=== PATIENT | female | born 1945 | race Caucasian/White ===

== ENCOUNTER → 2023-10-16 | Outpatient (REF) ==
[2023-10-16 11:04] LABS: HEMATOCRIT 27.6 % (36.0-47.0); HEMOGLOBIN 8.3 g/dl (12.0-15.5); MEAN CORPUSCULAR HEMOGLOBIN 30.3 pg (27.0-33.0); MEAN CORPUSCULAR HGB CONC 30.1 g/dl (32.0-36.5); MEAN CORPUSCULAR VOLUME 100.7 fl (80.0-96.0); PLATELET COUNT, AUTOMATED 410 10^3/uL (150-450); RED BLOOD COUNT 2.74 10^6/uL (4.00-5.40); WHITE BLOOD COUNT 8.6 10^3/uL (4.0-10.0)
[2023-10-16 11:28] LABS: BLOOD UREA NITROGEN 16 MG/DL (9-23); CALCIUM LEVEL 8.6 MG/DL (8.3-10.6); CARBON DIOXIDE LEVEL 25 MMOL/L (20-31); CHLORIDE LEVEL 106 MMOL/L (98-107); CREATININE FOR GFR 0.65 MG/DL (0.55-1.30); GLOMERULAR FILTRATION RATE > 60.0 (>39); GLUCOSE, FASTING 138 MG/DL (74-106); SODIUM LEVEL 138 MMOL/L (136-145)
== END ==
PROVIDERS: ATTEND Physician Assistant
DX: R62.7 Adult failure to thrive (principal)

== ENCOUNTER → 2023-10-23 | Outpatient (REF) ==
[2023-10-23 11:36] LABS: HEMATOCRIT 29.6 % (36.0-47.0); HEMOGLOBIN 8.8 g/dl (12.0-15.5); MEAN CORPUSCULAR HEMOGLOBIN 30.4 pg (27.0-33.0); MEAN CORPUSCULAR HGB CONC 29.7 g/dl (32.0-36.5); MEAN CORPUSCULAR VOLUME 102.4 fl (80.0-96.0); PLATELET COUNT, AUTOMATED 426 10^3/uL (150-450); RED BLOOD COUNT 2.89 10^6/uL (4.00-5.40); WHITE BLOOD COUNT 9.3 10^3/uL (4.0-10.0)
[2023-10-23 12:00] LABS: BLOOD UREA NITROGEN 16 MG/DL (9-23); CALCIUM LEVEL 8.6 MG/DL (8.3-10.6); CARBON DIOXIDE LEVEL 24 MMOL/L (20-31); CHLORIDE LEVEL 105 MMOL/L (98-107); CREATININE FOR GFR 0.52 MG/DL (0.55-1.30); GLOMERULAR FILTRATION RATE > 60.0 (>39); GLUCOSE, FASTING 140 MG/DL (74-106); POTASSIUM SERUM 3.9 MMOL/L (3.5-5.1); SODIUM LEVEL 138 MMOL/L (136-145)
== END ==
PROVIDERS: ATTEND Physician Assistant
DX: R62.7 Adult failure to thrive (principal)

== ENCOUNTER → 2023-11-13 | Outpatient (REF) ==
[2023-11-13 10:52] LABS: HEMATOCRIT 30.1 % (36.0-47.0); HEMOGLOBIN 9.2 g/dl (12.0-15.5); MEAN CORPUSCULAR HGB CONC 30.6 g/dl (32.0-36.5); PLATELET COUNT, AUTOMATED 517 10^3/uL (150-450); RED BLOOD COUNT 3.07 10^6/uL (4.00-5.40); WHITE BLOOD COUNT 8.8 10^3/uL (4.0-10.0)
[2023-11-13 11:11] LABS: BLOOD UREA NITROGEN 14 MG/DL (9-23); CALCIUM LEVEL 8.9 MG/DL (8.3-10.6); CARBON DIOXIDE LEVEL 24 MMOL/L (20-31); CHLORIDE LEVEL 101 MMOL/L (98-107); CREATININE FOR GFR 0.52 MG/DL (0.55-1.30); GLOMERULAR FILTRATION RATE > 60.0 (>39); GLUCOSE, FASTING 202 MG/DL (74-106); POTASSIUM SERUM 3.8 MMOL/L (3.5-5.1); SODIUM LEVEL 135 MMOL/L (136-145)
== END ==
PROVIDERS: ATTEND Internal Medicine
DX: R62.7 Adult failure to thrive (principal)

== ENCOUNTER → 2023-11-29 | Outpatient (REF) ==
[2023-11-29 12:24] LABS: FOLATE > 24.00 NG/ML (>5.4); MAGNESIUM LEVEL 2.1 MG/DL (1.8-2.4); VITAMIN B12 LEVEL 501 PG/ML (211-911)
== END ==
PROVIDERS: ATTEND Physician Assistant
DX: D64.9 Anemia, unspecified (principal)

== ENCOUNTER 2023-12-11 11:14 | Inpatient (IN) | payer MEDICARE, MEDICAID ==
[~2023-12-11] VITALS: Ht 152.4 cm; Wt 55.5 kg
[2023-12-11 12:20] LABS: BASO # 0.1 10^3/uL (0.0-0.2); BASO % 0.5 % (0.0-1.0); EOS # 0.1 10^3/uL (0.0-0.5); EOS % 0.6 % (0.0-3.0); HEMATOCRIT 26.3 % (36.0-47.0); LYMPH # 1.3 10^3/uL (1.5-5.0); LYMPH % 9.3 % (24.0-44.0); MEAN CORPUSCULAR HEMOGLOBIN 28.8 pg (27.0-33.0); MEAN CORPUSCULAR HGB CONC 30.4 g/dl (32.0-36.5); MEAN CORPUSCULAR VOLUME 94.6 fl (80.0-96.0); MONO # 1.4 10^3/uL (0.0-0.8); MONO % 9.7 % (2.0-8.0); NEUTROPHILS # 11.2 10^3/uL (1.5-8.5); NEUTROPHILS % 79.1 % (36.0-66.0); PLATELET COUNT, AUTOMATED 545 10^3/uL (150-450); RED BLOOD COUNT 2.78 10^6/uL (4.00-5.40); WHITE BLOOD COUNT 14.1 10^3/uL (4.0-10.0)
[2023-12-11 12:39] LABS: ALBUMIN 1.6 G/DL (3.2-5.2); ALKALINE PHOSPHATASE 179 U/L (46-116); ALT/SGPT 40 U/L (7.0-40); AST/SGOT 29 U/L (<34); BILIRUBIN,DIRECT 0.2 MG/DL (<0.4); BILIRUBIN,TOTAL 0.4 MG/DL (0.3-1.2); BLOOD UREA NITROGEN 21 MG/DL (9-23); CALCIUM LEVEL 8.6 MG/DL (8.3-10.6); CARBON DIOXIDE LEVEL 25 MMOL/L (20-31); CHLORIDE LEVEL 106 MMOL/L (98-107); CREATININE FOR GFR 0.45 MG/DL (0.55-1.30); GLOMERULAR FILTRATION RATE > 60.0 (>39); GLUCOSE, FASTING 121 MG/DL (74-106); POTASSIUM SERUM 4.1 MMOL/L (3.5-5.1); SODIUM LEVEL 140 MMOL/L (136-145); TOTAL PROTEIN 6.1 G/DL (5.7-8.2)
[2023-12-11 12:46] LABS: PROCALCITONIN 0.26 ng/ml
[2023-12-11 12:50] LABS: ERYTHROCYTE SEDIMENTATION RATE 77 mm/hr (0-30)
[2023-12-11] MEDS: VANCOMYCIN HCL 1,000 MG, VIAL MATE ADAPTER 1 EACH in NS 250 ML IV ONE (12:59)
[2023-12-11] MEDS ORDERED: BISA10SU27 PR (15:25)
[2023-12-11] MEDS ORDERED: PROT1TAB2 PO (15:25)
[2023-12-11] MEDS ORDERED: ASPI81TA26 PO (15:25)
[2023-12-11] MEDS ORDERED: FOLI1TAB11 PO (15:25)
[2023-12-11] MEDS ORDERED: ACET1TAB55 PO (15:25)
[2023-12-11] MEDS ORDERED: FERR325T3 PO (15:25)
[2023-12-11] MEDS ORDERED: CALC500T31 PO (15:25)
[2023-12-11] MEDS ORDERED: LEXA5TAB13 PO (15:25)
[2023-12-11] MEDS ORDERED: POLY17PO18 PO (15:25)
[2023-12-11] MEDS ORDERED: FLEEENE12 PR (15:25)
[2023-12-11] MEDS ORDERED: NEUR100C PO (15:25)
[2023-12-11] MEDS ORDERED: MM S100C PO (15:25)
[2023-12-11] MEDS ORDERED: MAGN400T2 PO (15:25)
[2023-12-11] MEDS ORDERED: ACET650T15 PO (15:25)
[2023-12-11] MEDS ORDERED: MELA3TAB30 PO (15:25)
[2023-12-11] MEDS ORDERED: LIDO5DIS41 TD (15:25)
[2023-12-11] MEDS ORDERED: ATEN25TA PO (15:25)
[2023-12-11] MEDS ORDERED: HOME MED LIST COMPLETE! XX SCH (15:30)
[2023-12-11] MEDS ORDERED: LIDOCAINE 2% 100MG/5ML SDV (FOR ANES.) As Ordered ONE (15:46)
[2023-12-11] MEDS ORDERED: ONDANSETRON 4MG 2ML VIAL As Ordered ONE (15:46)
[2023-12-11] MEDS ORDERED: ePHEDrine SULFATE 25 MG/5 ML(5MG/ML) SYRINGE As Ordered ONE (15:46)
[2023-12-11] MEDS ORDERED: SUGAMMADEX SODIUM 500 MG/5 ML VIAL (BRIDION) As Ordered ONE (15:46)
[2023-12-11] MEDS ORDERED: ROCURONIUM BROMIDE 50MG/5ML VIAL As Ordered ONE (15:46)
[2023-12-11] MEDS ORDERED: propofoL 200 MG/20 ML VIAL As Ordered ONE (15:46)
[2023-12-11] MEDS ORDERED: PHENYLephrine 500MCG 5ML (100MCG/ML) SYRINGE As Ordered ONE (15:46)
[2023-12-11] MEDS ORDERED: fentaNYL 100 MCG/2 ML INJECTION As Ordered ONE (15:46)
[2023-12-11] MEDS: SODIUM CHLORIDE 0.9% 1000ML IV STA (15:52)
[2023-12-11] MEDS: ceFAZolin 1GM VIAL As Ordered ONE (16:25)
[2023-12-11] MEDS ORDERED: ETOMIDATE INJ 20MG/10ML VIAL As Ordered ONE (16:45)
[2023-12-11] MEDS ORDERED: ceFAZolin 2 GM/D5W 50 ML IV BAG As Ordered ONE (17:10)
[2023-12-11 17:12] LABS: THYROID STIMULATING HORMONE 1.155 uIU/ML (0.55-4.78)
[2023-12-11 17:13] LABS: VITAMIN B12 LEVEL 451 PG/ML (211-911)
[2023-12-11] MEDS ORDERED: ESMOLOL INJ 100MG/10ML VIAL As Ordered ONE (17:29)
[2023-12-11] MEDS: INSULIN LISPRO (NovoLOG) PER UNIT SC SCH ×2 (17:30→21:00)
[2023-12-11] MEDS ORDERED: ACETAMINOPHEN 1000MG 100ML IV BAG As Ordered ONE (17:36)
[2023-12-11] MEDS ORDERED: GLUCAGON INJ 1MG VIAL SC PRN (17:45)
[2023-12-11] MEDS ORDERED: DEXTROSE 50% 50ML SYRINGE IV PRN (17:45)
[2023-12-11] MEDS ORDERED: FLEET ENEMA PR PRN (17:45)
[2023-12-11] MEDS ORDERED: BISACODYL 10MG SUPP PR PRN (17:45)
[2023-12-11] MEDS ORDERED: MIRALAX *UNIT DOSE* 17GM PACKET PO PRN (17:45)
[2023-12-11] MEDS ORDERED: ACETAMINOPHEN TAB 650MG DOSE (2X325MG) PO PRN (17:45)
[2023-12-11] MEDS ORDERED: GLUCOSE 4GM CHEW TABLET PO PRN (17:45)
[2023-12-11] MEDS ORDERED: VANCOMYCIN HCL 1,000 MG, VIAL MATE ADAPTER 1 EACH in D5W 250 ML IV SCH (18:00)
[2023-12-11] MEDS ORDERED: PIPERACILLIN/TAZOBACTAM SOD 4.5 GM in D5W MINI-BAG PLUS 50 ML IV SCH (19:00)
[2023-12-11 19:12] VITALS: BP 110/67; TEMP 97.6; O2SAT 99
[2023-12-11] MEDS: LIDOCAINE 5% (LIDODERM) PATCH TD SCH (19:16)
[2023-12-11 19:45] VITALS: BP 111/53; TEMP 97.4; O2SAT 97
[2023-12-11] MEDS: VANCOMYCIN HCL 750 MG, VIAL MATE ADAPTER 1 EACH in D5W 250 ML IV SCH (20:34)
[2023-12-11 20:39] VITALS: BP 107/56; TEMP 97.1; O2SAT 99
[2023-12-11] MEDS: GABAPENTIN 100 MG CAP PO SCH (21:00)
[2023-12-11] MEDS: ACETAMINOPHEN 650MG ER TAB (TYLENOL ARTHRITIS) PO SCH (21:00)
[2023-12-11] MEDS: OYSTER SHELL CALCIUM 500 MG TAB PO SCH (21:00)
[2023-12-11] MEDS: MAGNESIUM OXIDE 400MG TAB (MAG-OX) PO SCH (21:00)
[2023-12-11] MEDS: DOCUSATE SODIUM 100MG CAPSULE PO SCH (21:00)
[2023-12-11 21:50] VITALS: BP 102/59; TEMP 97; O2SAT 98
[2023-12-11] MEDS: HEPARIN SOD (PORCINE) 5000UNITS/ML 1ML VIAL/SYRINGE SC SCH (21:54)
[2023-12-11] MEDS: VANCOMYCIN HCL 500 MG in D5W MINI-BAG PLUS 100 ML IV SCH (21:55)
[2023-12-11 22:41] VITALS: BP 114/60; TEMP 97.4; O2SAT 96
[2023-12-11] MEDS: PIPERACILLIN/TAZOBACTAM SOD 4.5 GM in D5W MINI-BAG PLUS 50 ML IV SCH (23:10)
[2023-12-11 23:34] VITALS: BP 112/58; TEMP 97.2; O2SAT 100
[2023-12-12 03:53] VITALS: BP 127/60; TEMP 96.9; O2SAT 99
[2023-12-12 07:08] LABS: HEMATOCRIT 26.7 % (36.0-47.0); MEAN CORPUSCULAR HEMOGLOBIN 29.4 pg (27.0-33.0); MEAN CORPUSCULAR VOLUME 98.2 fl (80.0-96.0); PLATELET COUNT, AUTOMATED 491 10^3/uL (150-450); RED BLOOD COUNT 2.72 10^6/uL (4.00-5.40); WHITE BLOOD COUNT 12.9 10^3/uL (4.0-10.0)
[2023-12-12 07:34] VITALS: BP 110/55; TEMP 97.3; O2SAT 99
[2023-12-12 07:37] LABS: VANCOMYCIN LEVEL TROUGH 16.8 UG/ML (10.0-20.0)
[2023-12-12 07:38] LABS: BLOOD UREA NITROGEN 22 MG/DL (9-23); CALCIUM LEVEL 8.4 MG/DL (8.3-10.6); CARBON DIOXIDE LEVEL 25 MMOL/L (20-31); CHLORIDE LEVEL 106 MMOL/L (98-107); CREATININE FOR GFR 0.43 MG/DL (0.55-1.30); GLOMERULAR FILTRATION RATE > 60.0 (>39); GLUCOSE, FASTING 175 MG/DL (74-106); MAGNESIUM LEVEL 2.1 MG/DL (1.8-2.4); POTASSIUM SERUM 4.7 MMOL/L (3.5-5.1); SODIUM LEVEL 136 MMOL/L (136-145)
[2023-12-12 07:50] LABS: PROCALCITONIN 0.23 ng/ml
[2023-12-12 08:57] VITALS: O2SAT 97
[2023-12-12] MEDS ORDERED: FERROUS SULFATE 325MG TAB PO SCH (09:00)
[2023-12-12] MEDS: VANCOMYCIN HCL 750 MG, VIAL MATE ADAPTER 1 EACH in D5W 250 ML IV SCH (09:04)
[2023-12-12] MEDS: ESCITALOPRAM OXALATE 5MG TABLET (LEXAPRO) PO SCH (09:10)
[2023-12-12] MEDS: atenoloL 25 MG TAB PO SCH (09:11)
[2023-12-12] MEDS: FOLIC ACID 1MG TAB PO SCH (09:16)
[2023-12-12] MEDS: PANTOPRAZOLE 40MG TAB (PROTONIX) PO SCH (09:20)
[2023-12-12] MEDS: MORPHINE 2 MG/ML 1ML VIAL IV SCH (11:19)
[2023-12-12 16:00] VITALS: BP 126/60; TEMP 96.8; O2SAT 96
[2023-12-12 20:00] VITALS: BP 115/58; TEMP 98.6; O2SAT 95
[2023-12-12] MEDS: ENOXAPARIN 100MG/1ML SYRINGE (J1650 PER 10MG) SC SCH (21:26)
[2023-12-13 04:00] VITALS: BP 119/57; TEMP 97.5; O2SAT 97
[2023-12-13 07:38] VITALS: BP 108/53; TEMP 97.2; O2SAT 95
[2023-12-13 08:48] LABS: VANCOMYCIN LEVEL TROUGH 21.3 UG/ML (10.0-20.0)
[2023-12-13 08:49] LABS: BLOOD UREA NITROGEN 28 MG/DL (9-23); CALCIUM LEVEL 8.5 MG/DL (8.3-10.6); CARBON DIOXIDE LEVEL 21 MMOL/L (20-31); CHLORIDE LEVEL 105 MMOL/L (98-107); GLOMERULAR FILTRATION RATE > 60.0 (>39); GLUCOSE, FASTING 98 MG/DL (74-106); POTASSIUM SERUM 4.4 MMOL/L (3.5-5.1); SODIUM LEVEL 137 MMOL/L (136-145)
[2023-12-13 09:16] LABS: HEMATOCRIT 26.1 % (36.0-47.0); HEMOGLOBIN 7.7 g/dl (12.0-15.5); MEAN CORPUSCULAR HEMOGLOBIN 28.2 pg (27.0-33.0); MEAN CORPUSCULAR HGB CONC 29.5 g/dl (32.0-36.5); MEAN CORPUSCULAR VOLUME 95.6 fl (80.0-96.0); PLATELET COUNT, AUTOMATED 517 10^3/uL (150-450); RED BLOOD COUNT 2.73 10^6/uL (4.00-5.40); WHITE BLOOD COUNT 14.6 10^3/uL (4.0-10.0)
[2023-12-13 11:51] VITALS: BP 132/62; TEMP 97.1; O2SAT 96
[2023-12-13] MEDS: VANCOMYCIN HCL 1,000 MG, VIAL MATE ADAPTER 1 EACH in D5W 250 ML IV SCH (11:57)
[2023-12-13] MEDS: MORPHINE 15 MG SA TAB PO SCH (12:15)
[2023-12-13] MEDS ORDERED: LIDOCAINE 1% MDV 20ML VIAL As Ordered ONE (13:05)
[2023-12-13 16:00] VITALS: BP 121/55; TEMP 97.3; O2SAT 93
[2023-12-13] MEDS: SODIUM CHLORIDE 0.9% INJ 10 ML SYR IV SCH (18:23)
[2023-12-13 20:00] VITALS: BP 106/53; TEMP 97.3; O2SAT 100
[2023-12-14 04:00] VITALS: BP 112/53; TEMP 97.5; O2SAT 96
[2023-12-14 06:12] LABS: HEMATOCRIT 26.2 % (36.0-47.0); HEMOGLOBIN 7.8 g/dl (12.0-15.5); MEAN CORPUSCULAR HEMOGLOBIN 28.4 pg (27.0-33.0); MEAN CORPUSCULAR HGB CONC 29.8 g/dl (32.0-36.5); MEAN CORPUSCULAR VOLUME 95.3 fl (80.0-96.0); PLATELET COUNT, AUTOMATED 578 10^3/uL (150-450); RED BLOOD COUNT 2.75 10^6/uL (4.00-5.40); WHITE BLOOD COUNT 10.2 10^3/uL (4.0-10.0)
[2023-12-14 07:44] VITALS: BP 123/57; TEMP 97.1; O2SAT 97
[2023-12-14 07:55] LABS: BLOOD UREA NITROGEN 22 MG/DL (9-23); CALCIUM LEVEL 8.8 MG/DL (8.3-10.6); CARBON DIOXIDE LEVEL 28 MMOL/L (20-31); CHLORIDE LEVEL 101 MMOL/L (98-107); CREATININE FOR GFR 0.48 MG/DL (0.55-1.30); GLOMERULAR FILTRATION RATE > 60.0 (>39); GLUCOSE, FASTING 109 MG/DL (74-106); SODIUM LEVEL 134 MMOL/L (136-145)
[2023-12-14] MEDS: BISACODYL 10MG SUPP PR SCH (10:39)
[2023-12-14] MEDS: MIRALAX *UNIT DOSE* 17GM PACKET PO SCH (10:39)
[2023-12-14 11:46] VITALS: BP 117/62; TEMP 97; O2SAT 97
[2023-12-14 18:46] VITALS: BP 109/59; TEMP 97.2; O2SAT 96
[2023-12-14] MEDS: APIXABAN 5 MG TAB (ELIQUIS) PO SCH (21:29)
[2023-12-15] VITALS (8 sets, daily range): BP systolic 95–127; BP diastolic 55–81; TEMP 97.2–98.6; O2SAT 92–97
[2023-12-15 06:33] LABS: HEMATOCRIT 26.7 % (36.0-47.0); HEMOGLOBIN 8.1 g/dl (12.0-15.5); MEAN CORPUSCULAR HEMOGLOBIN 28.7 pg (27.0-33.0); MEAN CORPUSCULAR HGB CONC 30.3 g/dl (32.0-36.5); MEAN CORPUSCULAR VOLUME 94.7 fl (80.0-96.0); PLATELET COUNT, AUTOMATED 631 10^3/uL (150-450); RED BLOOD COUNT 2.82 10^6/uL (4.00-5.40); WHITE BLOOD COUNT 10.9 10^3/uL (4.0-10.0)
[2023-12-15 07:02] LABS: BLOOD UREA NITROGEN 17 MG/DL (9-23); CALCIUM LEVEL 8.6 MG/DL (8.3-10.6); CARBON DIOXIDE LEVEL 27 MMOL/L (20-31); CHLORIDE LEVEL 104 MMOL/L (98-107); CREATININE FOR GFR 0.42 MG/DL (0.55-1.30); GLOMERULAR FILTRATION RATE > 60.0 (>39); GLUCOSE, FASTING 118 MG/DL (74-106); POTASSIUM SERUM 3.9 MMOL/L (3.5-5.1); SODIUM LEVEL 135 MMOL/L (136-145)
[2023-12-15] MEDS ORDERED: ISOVUE-370 76% 100ML VIAL As Ordered ONE (11:47)
[2023-12-15] MEDS: RAMELTEON 8 MG TAB (ROZEREM) PO PRN (20:41)
[2023-12-15] MEDS: METOPROLOL TART 25 MG TABLET PO SCH (20:45)
[2023-12-16 06:05] VITALS: BP 129/71; TEMP 98.4; O2SAT 94
[2023-12-16 07:01] LABS: HEMATOCRIT 24.5 % (36.0-47.0); HEMOGLOBIN 7.6 g/dl (12.0-15.5); MEAN CORPUSCULAR HEMOGLOBIN 29.6 pg (27.0-33.0); MEAN CORPUSCULAR VOLUME 95.3 fl (80.0-96.0); PLATELET COUNT, AUTOMATED 536 10^3/uL (150-450); RED BLOOD COUNT 2.57 10^6/uL (4.00-5.40); WHITE BLOOD COUNT 12.4 10^3/uL (4.0-10.0)
[2023-12-16 07:48] LABS: BLOOD UREA NITROGEN 12 MG/DL (9-23); CALCIUM LEVEL 7.9 MG/DL (8.3-10.6); CARBON DIOXIDE LEVEL 26 MMOL/L (20-31); CHLORIDE LEVEL 106 MMOL/L (98-107); CREATININE FOR GFR 0.39 MG/DL (0.55-1.30); GLOMERULAR FILTRATION RATE > 60.0 (>39); GLUCOSE, FASTING 115 MG/DL (74-106); POTASSIUM SERUM 3.5 MMOL/L (3.5-5.1); SODIUM LEVEL 139 MMOL/L (136-145)
[2023-12-16] MEDS: METOPROLOL TART 50 MG TAB PO SCH (08:10)
[2023-12-16 14:00] VITALS: BP 115/57; TEMP 97.7; O2SAT 95
[2023-12-16 21:00] VITALS: BP 119/62; TEMP 97.7; O2SAT 95
[2023-12-17 05:23] VITALS: BP 124/67; TEMP 97.7; O2SAT 95
[2023-12-17 06:41] LABS: HEMATOCRIT 24.4 % (36.0-47.0); HEMOGLOBIN 7.3 g/dl (12.0-15.5); MEAN CORPUSCULAR HEMOGLOBIN 29.3 pg (27.0-33.0); MEAN CORPUSCULAR HGB CONC 29.9 g/dl (32.0-36.5); PLATELET COUNT, AUTOMATED 599 10^3/uL (150-450); RED BLOOD COUNT 2.49 10^6/uL (4.00-5.40); WHITE BLOOD COUNT 12.3 10^3/uL (4.0-10.0)
[2023-12-17 07:02] LABS: BLOOD UREA NITROGEN 14 MG/DL (9-23); CALCIUM LEVEL 8.1 MG/DL (8.3-10.6); CARBON DIOXIDE LEVEL 29 MMOL/L (20-31); CHLORIDE LEVEL 106 MMOL/L (98-107); GLOMERULAR FILTRATION RATE > 60.0 (>39); GLUCOSE, FASTING 103 MG/DL (74-106); POTASSIUM SERUM 4.1 MMOL/L (3.5-5.1); SODIUM LEVEL 140 MMOL/L (136-145)
[2023-12-17] MEDS: METOPROLOL TART 25 MG TABLET PO SCH (09:03)
[2023-12-17] MEDS: SODIUM CHLORIDE 0.9% INJ 10 ML SYR IV PRN (12:40)
[2023-12-17 14:00] VITALS: BP 96/56; TEMP 98.2; O2SAT 96
[2023-12-17 14:35] VITALS: BP 104/50
[2023-12-17 20:10] VITALS: BP 103/56; TEMP 97.9; O2SAT 93
[2023-12-18 05:08] VITALS: BP 116/65; TEMP 97.9; O2SAT 93
[2023-12-18 07:53] LABS: HEMATOCRIT 25.7 % (36.0-47.0); HEMOGLOBIN 7.4 g/dl (12.0-15.5); MEAN CORPUSCULAR HEMOGLOBIN 28.7 pg (27.0-33.0); MEAN CORPUSCULAR HGB CONC 28.8 g/dl (32.0-36.5); MEAN CORPUSCULAR VOLUME 99.6 fl (80.0-96.0); PLATELET COUNT, AUTOMATED 606 10^3/uL (150-450); RED BLOOD COUNT 2.58 10^6/uL (4.00-5.40)
[2023-12-18 07:59] LABS: VANCOMYCIN RANDOM 12.2 UG/ML
[2023-12-18 08:01] LABS: BLOOD UREA NITROGEN 15 MG/DL (9-23); CALCIUM LEVEL 8.1 MG/DL (8.3-10.6); CARBON DIOXIDE LEVEL 29 MMOL/L (20-31); CHLORIDE LEVEL 104 MMOL/L (98-107); GLOMERULAR FILTRATION RATE > 60.0 (>39); GLUCOSE, FASTING 96 MG/DL (74-106); POTASSIUM SERUM 4.2 MMOL/L (3.5-5.1); SODIUM LEVEL 139 MMOL/L (136-145)
[2023-12-18] MEDS: VANCOMYCIN HCL 1,000 MG, VIAL MATE ADAPTER 1 EACH in D5W 250 ML IV SCH (08:25)
[2023-12-18 13:50] VITALS: BP 125/58; TEMP 97.9; O2SAT 93
[2023-12-18 20:55] VITALS: BP 122/58; TEMP 97.9; O2SAT 94
[2023-12-19 05:51] VITALS: BP 117/67; TEMP 98.1; O2SAT 93
[2023-12-19 06:34] LABS: HEMATOCRIT 26.4 % (36.0-47.0); HEMOGLOBIN 7.9 g/dl (12.0-15.5); MEAN CORPUSCULAR HEMOGLOBIN 29.3 pg (27.0-33.0); MEAN CORPUSCULAR HGB CONC 29.9 g/dl (32.0-36.5); MEAN CORPUSCULAR VOLUME 97.8 fl (80.0-96.0); PLATELET COUNT, AUTOMATED 639 10^3/uL (150-450); WHITE BLOOD COUNT 9.8 10^3/uL (4.0-10.0)
[2023-12-19 06:52] LABS: BLOOD UREA NITROGEN 11 MG/DL (9-23); CALCIUM LEVEL 8.4 MG/DL (8.3-10.6); CARBON DIOXIDE LEVEL 28 MMOL/L (20-31); CHLORIDE LEVEL 104 MMOL/L (98-107); CREATININE FOR GFR 0.43 MG/DL (0.55-1.30); GLOMERULAR FILTRATION RATE > 60.0 (>39); GLUCOSE, FASTING 101 MG/DL (74-106); SODIUM LEVEL 138 MMOL/L (136-145)
[2023-12-19] MEDS ORDERED: METO1TAB87 PO (09:58)
[2023-12-19] MEDS ORDERED: VANC1PLA6 IV (09:58)
[2023-12-19] MEDS ORDERED: ELIQ5TAB PO (09:58)
[2023-12-19 14:00] VITALS: BP 122/59; TEMP 97.9; O2SAT 94
[2023-12-19 21:22] VITALS: BP 114/61; TEMP 97.9; O2SAT 96
[2023-12-19] MEDS: DIAPER RELIEF PASTE (DESITIN) 60GM TOP SCH (22:03)
[2023-12-19] MEDS: NYSTATIN 100,000 UNITS/GM TOPICAL PWD 15GM TOP SCH (22:03)
[2023-12-20 05:03] VITALS: BP 111/52; TEMP 98.1; O2SAT 94
[2023-12-20] MEDS ORDERED: SODIUM CHLORIDE 0.9% INJ 10 ML SYR IV PRN (08:00)
[2023-12-20] MEDS: SODIUM CHLORIDE 0.9% INJ 10 ML SYR IV SCH (08:31)
[2023-12-20 08:37] VITALS: BP 114/52
[2023-12-20] MEDS ORDERED: METO50TA7 PO (08:57)
[2023-12-20] MEDS ORDERED: METOPROLOL TART 50 MG TAB PO ONE (09:30)
== END 2023-12-20 10:30 | DRG 853 ==
LOC: M ED 11:14 → EDBD 11:14 → M ED INP 15:24 → M PCU 18:51 → M MSPAV 12-15 15:31
PROVIDERS: ADMIT Internal Medicine; ATTEND Internal Medicine
PROC: 0S9F0ZZ Drainage of Right Ankle Joint, Open Approach (ICD-10-PCS; principal; 2023-12-11 16:00)
PROC: 05HB33Z Insertion of Infusion Device into Right Basilic Vein, Percutaneous Approach (ICD-10-PCS; 2023-12-13)
DX: A41.9 Sepsis, unspecified organism (principal); G93.41 Metabolic encephalopathy; L02.415 Cutaneous abscess of right lower limb; M00.071 Staphylococcal arthritis, right ankle and foot; N39.0 Urinary tract infection, site not specified; L03.116 Cellulitis of left lower limb; L97.318 Non-pressure chronic ulcer of right ankle with other specified severity; M86.8X7 Other osteomyelitis, ankle and foot; M85.80 Other specified disorders of bone density and structure, unspecified site; I10 Essential (primary) hypertension; E11.9 Type 2 diabetes mellitus without complications; Z66 Do not resuscitate; F32.A Depression, unspecified; D64.9 Anemia, unspecified; I48.91 Unspecified atrial fibrillation; K21.9 Gastro-esophageal reflux disease without esophagitis; G47.00 Insomnia, unspecified; K59.00 Constipation, unspecified; N32.81 Overactive bladder; M47.816 Spondylosis without myelopathy or radiculopathy, lumbar region; R41.0 Disorientation, unspecified; E03.9 Hypothyroidism, unspecified; E53.8 Deficiency of other specified B group vitamins; G89.29 Other chronic pain; L89.151 Pressure ulcer of sacral region, stage 1; Z79.82 Long term (current) use of aspirin; Z79.899 Other long term (current) drug therapy; Z86.73 Personal history of transient ischemic attack (TIA), and cerebral infarction without residual deficits

== ENCOUNTER → 2023-12-11 | Outpatient (REF) ==
[~2023-12-11] MED LIST: ACET1TAB55 PO; ACET650T15 PO; ASPI81TA26 PO; ATEN25TA PO; BISA10SU27 PR; CALC500T31 PO; FERR325T3 PO; FLEEENE12 PR; FOLI1TAB11 PO; LEXA5TAB13 PO; LIDO5DIS41 TD; MAGN400T2 PO; MELA3TAB30 PO; MM S100C PO; NEUR100C PO; POLY17PO18 PO; PROT1TAB2 PO
== END ==
PROVIDERS: ATTEND Physician Assistant
DX: R22.41 Localized swelling, mass and lump, right lower limb (principal); Z53.8 Procedure and treatment not carried out for other reasons

== ENCOUNTER → 2023-12-11 | Outpatient (REF) ==
[2023-12-11 09:17] LABS: BASO # 0.1 10^3/uL (0.0-0.2); BASO % 0.4 % (0.0-1.0); BLOOD UREA NITROGEN 21 MG/DL (9-23); CALCIUM LEVEL 8.8 MG/DL (8.3-10.6); CARBON DIOXIDE LEVEL 25 MMOL/L (20-31); CHLORIDE LEVEL 103 MMOL/L (98-107); CREATININE FOR GFR 0.42 MG/DL (0.55-1.30); EOS # 0.1 10^3/uL (0.0-0.5); EOS % 0.7 % (0.0-3.0); GLOMERULAR FILTRATION RATE > 60.0 (>39); GLUCOSE, FASTING 130 MG/DL (74-106); HEMATOCRIT 25.5 % (36.0-47.0); HEMOGLOBIN 7.9 g/dl (12.0-15.5); MEAN CORPUSCULAR HEMOGLOBIN 29.3 pg (27.0-33.0); MEAN CORPUSCULAR VOLUME 94.4 fl (80.0-96.0); MONO # 1.3 10^3/uL (0.0-0.8); MONO % 8.9 % (2.0-8.0); NEUTROPHILS # 12.3 10^3/uL (1.5-8.5); NEUTROPHILS % 82.5 % (36.0-66.0); PLATELET COUNT, AUTOMATED 554 10^3/uL (150-450); POTASSIUM SERUM 4.3 MMOL/L (3.5-5.1); SODIUM LEVEL 139 MMOL/L (136-145); WHITE BLOOD COUNT 14.9 10^3/uL (4.0-10.0)
[2023-12-11 09:30] LABS: ERYTHROCYTE SEDIMENTATION RATE 83 mm/hr (0-30)
== END ==
PROVIDERS: ATTEND Internal Medicine
DX: R62.7 Adult failure to thrive (principal); M25.571 Pain in right ankle and joints of right foot

== ENCOUNTER → 2023-12-19 | Outpatient (REF) ==
[~2023-12-19] MED LIST changes: +ELIQ5TAB PO; +METO1TAB87 PO; +METO50TA7 PO; +VANC1PLA6 IV
== END ==
PROVIDERS: ATTEND Internal Medicine
DX: A41.9 Sepsis, unspecified organism (principal); Z79.2 Long term (current) use of antibiotics; Z53.8 Procedure and treatment not carried out for other reasons

== ENCOUNTER → 2023-12-23 | Outpatient (REF) | PROVIDERS: ATTEND Internal Medicine | DX: A41.9 Sepsis, unspecified organism (principal); Z79.2 Long term (current) use of antibiotics ==

== ENCOUNTER → 2023-12-25 | Outpatient (REF) ==
[2023-12-25 11:43] LABS: HEMATOCRIT 38.6 % (36.0-47.0); HEMOGLOBIN 12.6 g/dl (12.0-15.5); MEAN CORPUSCULAR HEMOGLOBIN 31.2 pg (27.0-33.0); MEAN CORPUSCULAR HGB CONC 32.6 g/dl (32.0-36.5); MEAN CORPUSCULAR VOLUME 95.5 fl (80.0-96.0); PLATELET COUNT, AUTOMATED 239 10^3/uL (150-450); RED BLOOD COUNT 4.04 10^6/uL (4.00-5.40); WHITE BLOOD COUNT 7.7 10^3/uL (4.0-10.0)
[2023-12-25 12:00] LABS: C REACTIVE PROTEIN QUANTITATIV < 0.40 MG/DL (<1.0)
[2023-12-25 12:01] LABS: ALBUMIN 2.8 G/DL (3.2-5.2); ALKALINE PHOSPHATASE 61 U/L (46-116); ALT/SGPT 12 U/L (7.0-40); AST/SGOT 12 U/L (<34); BILIRUBIN,TOTAL 0.3 MG/DL (0.3-1.2); BLOOD UREA NITROGEN 24 MG/DL (9-23); CALCIUM LEVEL 9.2 MG/DL (8.3-10.6); CARBON DIOXIDE LEVEL 26 MMOL/L (20-31); CHLORIDE LEVEL 106 MMOL/L (98-107); CREATININE FOR GFR 0.65 MG/DL (0.55-1.30); GLOMERULAR FILTRATION RATE > 60.0 (>39); GLUCOSE, FASTING 107 MG/DL (74-106); POTASSIUM SERUM 4.2 MMOL/L (3.5-5.1); SODIUM LEVEL 139 MMOL/L (136-145); TOTAL PROTEIN 6.4 G/DL (5.7-8.2)
[2023-12-25 12:10] LABS: ERYTHROCYTE SEDIMENTATION RATE 35 mm/hr (0-30)
== END ==
PROVIDERS: ATTEND Internal Medicine
DX: A41.9 Sepsis, unspecified organism (principal); Z79.2 Long term (current) use of antibiotics

== ENCOUNTER → 2023-12-27 | Outpatient (REF) | PROVIDERS: ATTEND Internal Medicine | DX: A41.9 Sepsis, unspecified organism (principal); Z79.2 Long term (current) use of antibiotics ==

== ENCOUNTER → 2023-12-27 | Outpatient (REF) ==
[2023-12-27 19:50] LABS: BACTERIA, URINE SMALL AMOUNT; CALCIUM OXALATE CRYSTALS,URINE SMALL AMOUNT /hpf; HYALINE CAST, URINE NONE SEEN /lpf (0-1); MUCUS, URINE SMALL AMOUNT (NEGATIVE); SQUAMOUS EPITHELIAL CELL URINE SMALL AMOUNT /hpf (SMALL AMT); WBC, URINE 40-50 /hpf (0-3)
== END ==
PROVIDERS: ATTEND Physician Assistant
DX: R31.9 Hematuria, unspecified (principal)

== ENCOUNTER → 2023-12-29 | Outpatient (REF) | PROVIDERS: ATTEND Internal Medicine | DX: A41.9 Sepsis, unspecified organism (principal); Z79.2 Long term (current) use of antibiotics ==

== ENCOUNTER → 2024-01-01 | Outpatient (REF) ==
[2024-01-01 06:45] LABS: HEMATOCRIT 26.1 % (36.0-47.0); HEMOGLOBIN 8.1 g/dl (12.0-15.5); MEAN CORPUSCULAR HEMOGLOBIN 29.1 pg (27.0-33.0); MEAN CORPUSCULAR VOLUME 93.9 fl (80.0-96.0); PLATELET COUNT, AUTOMATED 383 10^3/uL (150-450); RED BLOOD COUNT 2.78 10^6/uL (4.00-5.40); WHITE BLOOD COUNT 5.7 10^3/uL (4.0-10.0)
[2024-01-01 06:50] LABS: ERYTHROCYTE SEDIMENTATION RATE > 130 mm/hr (0-30)
[2024-01-01 07:33] LABS: ALBUMIN 1.6 G/DL (3.2-5.2); ALKALINE PHOSPHATASE 103 U/L (46-116); ALT/SGPT < 9 U/L (7.0-40); AST/SGOT 12 U/L (<34); BILIRUBIN,TOTAL < 0.2 MG/DL (0.3-1.2); BLOOD UREA NITROGEN 16 MG/DL (9-23); CARBON DIOXIDE LEVEL 26 MMOL/L (20-31); CHLORIDE LEVEL 105 MMOL/L (98-107); CREATININE FOR GFR 0.41 MG/DL (0.55-1.30); GLOMERULAR FILTRATION RATE > 60.0 (>39); GLUCOSE, FASTING 98 MG/DL (74-106); POTASSIUM SERUM 3.9 MMOL/L (3.5-5.1); SODIUM LEVEL 140 MMOL/L (136-145); TOTAL PROTEIN 5.4 G/DL (5.7-8.2); VANCOMYCIN LEVEL TROUGH 11.8 UG/ML (10.0-20.0)
== END ==
PROVIDERS: ATTEND Internal Medicine
DX: A41.9 Sepsis, unspecified organism (principal); Z79.2 Long term (current) use of antibiotics

== ENCOUNTER → 2024-01-03 | Outpatient (REF) | payer MEDICAID, MEDICARE | LOC: M SOG 08:11 → EDSTATUS 15:21 | PROVIDERS: ATTEND Physician Assistant | DX: M00.871 Arthritis due to other bacteria, right ankle and foot (principal) ==

== ENCOUNTER → 2024-01-04 | Outpatient (REF) | PROVIDERS: ATTEND Internal Medicine | DX: A41.9 Sepsis, unspecified organism (principal); Z79.2 Long term (current) use of antibiotics ==

== ENCOUNTER → 2024-01-07 | Outpatient (REF) | PROVIDERS: ATTEND Internal Medicine | DX: A41.9 Sepsis, unspecified organism (principal); Z79.2 Long term (current) use of antibiotics; Z53.8 Procedure and treatment not carried out for other reasons ==

== ENCOUNTER → 2024-01-08 | Outpatient (REF) ==
[2024-01-08 10:07] LABS: HEMATOCRIT 29.3 % (36.0-47.0); HEMOGLOBIN 8.8 g/dl (12.0-15.5); MEAN CORPUSCULAR VOLUME 96.7 fl (80.0-96.0); PLATELET COUNT, AUTOMATED 441 10^3/uL (150-450); RED BLOOD COUNT 3.03 10^6/uL (4.00-5.40)
[2024-01-08 10:12] LABS: ERYTHROCYTE SEDIMENTATION RATE 105 mm/hr (0-30)
[2024-01-08 10:37] LABS: ALBUMIN 1.9 G/DL (3.2-5.2); ALKALINE PHOSPHATASE 90 U/L (46-116); ALT/SGPT < 9 U/L (7.0-40); AST/SGOT < 8 U/L (<34); BILIRUBIN,TOTAL 0.2 MG/DL (0.3-1.2); BLOOD UREA NITROGEN 16 MG/DL (9-23); CALCIUM LEVEL 8.1 MG/DL (8.3-10.6); CARBON DIOXIDE LEVEL 25 MMOL/L (20-31); CHLORIDE LEVEL 107 MMOL/L (98-107); CREATININE FOR GFR 0.48 MG/DL (0.55-1.30); GLOMERULAR FILTRATION RATE > 60.0 (>39); GLUCOSE, FASTING 160 MG/DL (74-106); SODIUM LEVEL 142 MMOL/L (136-145); TOTAL PROTEIN 5.7 G/DL (5.7-8.2)
[2024-01-08 10:38] LABS: CHOLESTEROL LEVEL 182 MG/DL (<200); HDL CHOLESTEROL 29.8 MG/DL (>40); NON-HDL-C 152.2 MG/DL; TRIGLYCERIDES LEVEL 191 MG/DL (<150)
[2024-01-08 10:39] LABS: FOLATE > 24.00 NG/ML (>5.4)
== END ==
PROVIDERS: ATTEND Internal Medicine
DX: A41.9 Sepsis, unspecified organism (principal); Z79.2 Long term (current) use of antibiotics

== ENCOUNTER → 2024-01-15 | Outpatient (REF) ==
[2024-01-15 11:19] LABS: HEMATOCRIT 30.8 % (36.0-47.0); HEMOGLOBIN 9.4 g/dl (12.0-15.5); MEAN CORPUSCULAR HEMOGLOBIN 29.1 pg (27.0-33.0); MEAN CORPUSCULAR HGB CONC 30.5 g/dl (32.0-36.5); MEAN CORPUSCULAR VOLUME 95.4 fl (80.0-96.0); PLATELET COUNT, AUTOMATED 416 10^3/uL (150-450); RED BLOOD COUNT 3.23 10^6/uL (4.00-5.40); WHITE BLOOD COUNT 5.8 10^3/uL (4.0-10.0)
[2024-01-15 11:39] LABS: ERYTHROCYTE SEDIMENTATION RATE 110 mm/hr (0-30)
[2024-01-15 11:51] LABS: BLOOD UREA NITROGEN 25 MG/DL (9-23); CALCIUM LEVEL 8.7 MG/DL (8.3-10.6); CARBON DIOXIDE LEVEL 25 MMOL/L (20-31); CHLORIDE LEVEL 106 MMOL/L (98-107); CREATININE FOR GFR 0.49 MG/DL (0.55-1.30); GLOMERULAR FILTRATION RATE > 60.0 (>39); GLUCOSE, FASTING 97 MG/DL (74-106); POTASSIUM SERUM 4.2 MMOL/L (3.5-5.1); SODIUM LEVEL 139 MMOL/L (136-145)
== END ==
PROVIDERS: ATTEND Physician Assistant
DX: M00.9 Pyogenic arthritis, unspecified (principal)

== ENCOUNTER → 2024-01-17 | Outpatient (REF) ==
[2024-01-17 10:45] LABS: HEMATOCRIT 30.8 % (36.0-47.0); HEMOGLOBIN 9.4 g/dl (12.0-15.5); MEAN CORPUSCULAR HEMOGLOBIN 28.8 pg (27.0-33.0); MEAN CORPUSCULAR HGB CONC 30.5 g/dl (32.0-36.5); MEAN CORPUSCULAR VOLUME 94.5 fl (80.0-96.0); PLATELET COUNT, AUTOMATED 360 10^3/uL (150-450); RED BLOOD COUNT 3.26 10^6/uL (4.00-5.40); WHITE BLOOD COUNT 5.3 10^3/uL (4.0-10.0)
[2024-01-17 11:11] LABS: BLOOD UREA NITROGEN 25 MG/DL (9-23); CALCIUM LEVEL 8.6 MG/DL (8.3-10.6); CARBON DIOXIDE LEVEL 23 MMOL/L (20-31); CHLORIDE LEVEL 106 MMOL/L (98-107); CREATININE FOR GFR 0.46 MG/DL (0.55-1.30); GLOMERULAR FILTRATION RATE > 60.0 (>39); GLUCOSE, FASTING 158 MG/DL (74-106); POTASSIUM SERUM 3.4 MMOL/L (3.5-5.1); SODIUM LEVEL 138 MMOL/L (136-145)
== END ==
PROVIDERS: ATTEND Physician Assistant
DX: R62.7 Adult failure to thrive (principal)

== ENCOUNTER → 2024-01-22 | Outpatient (REF) ==
[2024-01-22 11:13] LABS: HEMATOCRIT 30.7 % (36.0-47.0); HEMOGLOBIN 9.5 g/dl (12.0-15.5); MEAN CORPUSCULAR HEMOGLOBIN 28.9 pg (27.0-33.0); MEAN CORPUSCULAR HGB CONC 30.9 g/dl (32.0-36.5); MEAN CORPUSCULAR VOLUME 93.3 fl (80.0-96.0); PLATELET COUNT, AUTOMATED 218 10^3/uL (150-450); RED BLOOD COUNT 3.29 10^6/uL (4.00-5.40); WHITE BLOOD COUNT 4.9 10^3/uL (4.0-10.0)
[2024-01-22 11:25] LABS: ERYTHROCYTE SEDIMENTATION RATE 88 mm/hr (0-30)
[2024-01-22 11:39] LABS: BLOOD UREA NITROGEN 19 MG/DL (9-23); CALCIUM LEVEL 8.7 MG/DL (8.3-10.6); CARBON DIOXIDE LEVEL 25 MMOL/L (20-31); CHLORIDE LEVEL 106 MMOL/L (98-107); CREATININE FOR GFR 0.41 MG/DL (0.55-1.30); GLOMERULAR FILTRATION RATE > 60.0 (>39); GLUCOSE, FASTING 112 MG/DL (74-106); POTASSIUM SERUM 3.7 MMOL/L (3.5-5.1); SODIUM LEVEL 141 MMOL/L (136-145)
== END ==
PROVIDERS: ATTEND Physician Assistant
DX: M00.871 Arthritis due to other bacteria, right ankle and foot (principal)

== ENCOUNTER → 2024-02-29 | Outpatient (REF) | payer MEDICARE, MEDICAID ==
[2024-02-29 09:18] LABS: HEMATOCRIT 27.9 % (36.0-47.0); HEMOGLOBIN 8.7 g/dl (12.0-15.5); MEAN CORPUSCULAR HEMOGLOBIN 28.2 pg (27.0-33.0); MEAN CORPUSCULAR HGB CONC 31.2 g/dl (32.0-36.5); MEAN CORPUSCULAR VOLUME 90.3 fl (80.0-96.0); PLATELET COUNT, AUTOMATED 334 10^3/uL (150-450); RED BLOOD COUNT 3.09 10^6/uL (4.00-5.40); WHITE BLOOD COUNT 4.9 10^3/uL (4.0-10.0)
[2024-02-29 09:22] LABS: BLOOD UREA NITROGEN 22 MG/DL (9-23); CALCIUM LEVEL 9.1 MG/DL (8.3-10.6); CARBON DIOXIDE LEVEL 28 MMOL/L (20-31); CHLORIDE LEVEL 104 MMOL/L (98-107); CREATININE FOR GFR 0.44 MG/DL (0.55-1.30); GLOMERULAR FILTRATION RATE > 60.0 (>39); GLUCOSE, FASTING 99 MG/DL (74-106); POTASSIUM SERUM 4.4 MMOL/L (3.5-5.1); SODIUM LEVEL 136 MMOL/L (136-145)
== END ==
PROVIDERS: ATTEND Internal Medicine
DX: R62.7 Adult failure to thrive (principal)

== ENCOUNTER → 2024-03-04 | Outpatient (REF) | payer MEDICARE, MEDICAID ==
[2024-03-04 09:25] LABS: HEMOGLOBIN 9.1 g/dl (12.0-15.5); MEAN CORPUSCULAR HEMOGLOBIN 27.2 pg (27.0-33.0); MEAN CORPUSCULAR HGB CONC 30.3 g/dl (32.0-36.5); MEAN CORPUSCULAR VOLUME 89.6 fl (80.0-96.0); PLATELET COUNT, AUTOMATED 396 10^3/uL (150-450); RED BLOOD COUNT 3.35 10^6/uL (4.00-5.40)
[2024-03-04 09:37] LABS: BLOOD UREA NITROGEN 21 MG/DL (9-23); CALCIUM LEVEL 8.9 MG/DL (8.3-10.6); CARBON DIOXIDE LEVEL 27 MMOL/L (20-31); CHLORIDE LEVEL 105 MMOL/L (98-107); CREATININE FOR GFR 0.44 MG/DL (0.55-1.30); GLOMERULAR FILTRATION RATE > 60.0 (>39); GLUCOSE, FASTING 105 MG/DL (74-106); IRON (FE) 18 UG/DL (50-170); MAGNESIUM LEVEL 1.7 MG/DL (1.8-2.4); PERCENT SATURATION 6.9 % (13.2-45.0); POTASSIUM SERUM 4.3 MMOL/L (3.5-5.1); SODIUM LEVEL 138 MMOL/L (136-145); TOTAL IRON BINDING CAPACITY 260 UG/DL (250-425)
[2024-03-04 09:39] LABS: FERRITIN 46.5 NG/ML (7.3-270.7)
[2024-03-04 09:40] LABS: FOLATE > 24.00 NG/ML (>5.4); VITAMIN B12 LEVEL 411 PG/ML (211-911)
== END ==
PROVIDERS: ATTEND Physician Assistant
DX: D64.9 Anemia, unspecified (principal)

== ENCOUNTER → 2024-03-13 | Outpatient (REF) | payer MEDICARE, MEDICAID ==
[2024-03-13 10:14] LABS: HEMATOCRIT 29.5 % (36.0-47.0); HEMOGLOBIN 9.1 g/dl (12.0-15.5); MEAN CORPUSCULAR HEMOGLOBIN 27.4 pg (27.0-33.0); MEAN CORPUSCULAR HGB CONC 30.8 g/dl (32.0-36.5); MEAN CORPUSCULAR VOLUME 88.9 fl (80.0-96.0); PLATELET COUNT, AUTOMATED 373 10^3/uL (150-450); RED BLOOD COUNT 3.32 10^6/uL (4.00-5.40)
[2024-03-13 10:42] LABS: BLOOD UREA NITROGEN 20 MG/DL (9-23); CALCIUM LEVEL 8.9 MG/DL (8.3-10.6); CARBON DIOXIDE LEVEL 27 MMOL/L (20-31); CHLORIDE LEVEL 104 MMOL/L (98-107); CREATININE FOR GFR 0.45 MG/DL (0.55-1.30); GLOMERULAR FILTRATION RATE > 60.0 (>39); GLUCOSE, FASTING 153 MG/DL (74-106); POTASSIUM SERUM 3.9 MMOL/L (3.5-5.1); SODIUM LEVEL 139 MMOL/L (136-145)
== END ==
PROVIDERS: ATTEND Physician Assistant
DX: I48.91 Unspecified atrial fibrillation (principal)

== ENCOUNTER → 2024-03-13 | Outpatient (REF) | payer MEDICARE, MEDICAID | PROVIDERS: ATTEND Internal Medicine | DX: D64.9 Anemia, unspecified (principal); Z53.8 Procedure and treatment not carried out for other reasons ==

== ENCOUNTER → 2024-04-15 | Outpatient (REF) | payer MEDICARE, MEDICAID ==
[2024-04-15 11:33] LABS: HEMATOCRIT 38.3 % (36.0-47.0); HEMOGLOBIN 12.6 g/dl (12.0-15.5); MEAN CORPUSCULAR HEMOGLOBIN 31.6 pg (27.0-33.0); MEAN CORPUSCULAR HGB CONC 32.9 g/dl (32.0-36.5); PLATELET COUNT, AUTOMATED 216 10^3/uL (150-450); RED BLOOD COUNT 3.99 10^6/uL (4.00-5.40); WHITE BLOOD COUNT 5.2 10^3/uL (4.0-10.0)
[2024-04-15 11:58] LABS: BLOOD UREA NITROGEN 16 MG/DL (9-23); CALCIUM LEVEL 9.5 MG/DL (8.3-10.6); CARBON DIOXIDE LEVEL 28 MMOL/L (20-31); CHLORIDE LEVEL 106 MMOL/L (98-107); GLOMERULAR FILTRATION RATE > 60.0 (>39); GLUCOSE, FASTING 79 MG/DL (74-106); POTASSIUM SERUM 4.5 MMOL/L (3.5-5.1); SODIUM LEVEL 138 MMOL/L (136-145)
== END ==
PROVIDERS: ATTEND Internal Medicine
DX: R62.7 Adult failure to thrive (principal)

== ENCOUNTER → 2024-05-13 | Outpatient (REF) | payer MEDICARE, MEDICAID | PROVIDERS: ATTEND Internal Medicine | DX: E78.5 Hyperlipidemia, unspecified (principal); Z53.8 Procedure and treatment not carried out for other reasons ==

== ENCOUNTER → 2024-05-15 | Outpatient (REF) | payer MEDICARE, MEDICAID ==
[2024-05-15 11:56] LABS: HEMATOCRIT 28.5 % (36.0-47.0); HEMOGLOBIN 8.8 g/dl (12.0-15.5); MEAN CORPUSCULAR HEMOGLOBIN 25.6 pg (27.0-33.0); MEAN CORPUSCULAR HGB CONC 30.9 g/dl (32.0-36.5); MEAN CORPUSCULAR VOLUME 82.8 fl (80.0-96.0); PLATELET COUNT, AUTOMATED 374 10^3/uL (150-450); RED BLOOD COUNT 3.44 10^6/uL (4.00-5.40)
[2024-05-15 12:17] LABS: BLOOD UREA NITROGEN 24 MG/DL (9-23); CALCIUM LEVEL 8.8 MG/DL (8.3-10.6); CARBON DIOXIDE LEVEL 28 MMOL/L (20-31); CHLORIDE LEVEL 102 MMOL/L (98-107); CHOLESTEROL LEVEL 195 MG/DL (<200); CHOLESTEROL RISK RATIO 6.81 (<5); CREATININE FOR GFR 0.52 MG/DL (0.55-1.30); GLOMERULAR FILTRATION RATE > 60.0 (>39); GLUCOSE, FASTING 110 MG/DL (74-106); HDL CHOLESTEROL 28.6 MG/DL (>40); NON-HDL-C 166.4 MG/DL; POTASSIUM SERUM 4.3 MMOL/L (3.5-5.1); SODIUM LEVEL 136 MMOL/L (136-145); TRIGLYCERIDES LEVEL 127 MG/DL (<150)
[2024-05-15 12:19] LABS: FOLATE > 24.00 NG/ML (>5.4)
== END ==
PROVIDERS: ATTEND Internal Medicine
DX: I48.91 Unspecified atrial fibrillation (principal); Z79.899 Other long term (current) drug therapy

== ENCOUNTER → 2024-06-17 | Outpatient (REF) | payer MEDICARE, MEDICAID ==
[~2024-06-17] MED LIST changes: -CALC500T31 PO; +OYST500T16 PO
[2024-06-17 10:04] LABS: HEMATOCRIT 30.6 % (36.0-47.0); HEMOGLOBIN 9.3 g/dl (12.0-15.5); MEAN CORPUSCULAR HEMOGLOBIN 25.4 pg (27.0-33.0); MEAN CORPUSCULAR HGB CONC 30.4 g/dl (32.0-36.5); MEAN CORPUSCULAR VOLUME 83.6 fl (80.0-96.0); PLATELET COUNT, AUTOMATED 348 10^3/uL (150-450); RED BLOOD COUNT 3.66 10^6/uL (4.00-5.40); WHITE BLOOD COUNT 4.3 10^3/uL (4.0-10.0)
[2024-06-17 10:31] LABS: BLOOD UREA NITROGEN 25 MG/DL (9-23); CALCIUM LEVEL 9.2 MG/DL (8.3-10.6); CARBON DIOXIDE LEVEL 26 MMOL/L (20-31); CHLORIDE LEVEL 102 MMOL/L (98-107); CHOLESTEROL LEVEL 198 MG/DL (<200); CHOLESTEROL RISK RATIO 7.07 (<5); CREATININE FOR GFR 0.55 MG/DL (0.55-1.30); GLOMERULAR FILTRATION RATE > 60.0 (>39); GLUCOSE, FASTING 113 MG/DL (74-106); LDL CHOLESTEROL 142.6 MG/DL (<100); POTASSIUM SERUM 4.2 MMOL/L (3.5-5.1); SODIUM LEVEL 134 MMOL/L (136-145); TRIGLYCERIDES LEVEL 137 MG/DL (<150)
[2024-06-17 10:34] LABS: FOLATE > 24.00 NG/ML (>5.4)
== END ==
PROVIDERS: ATTEND Physician Assistant
DX: R62.7 Adult failure to thrive (principal); Z79.899 Other long term (current) drug therapy

== ENCOUNTER → 2024-07-15 | Outpatient (REF) | payer MEDICARE, MEDICAID ==
[2024-07-15 11:11] LABS: HEMATOCRIT 32.5 % (36.0-47.0); MEAN CORPUSCULAR HEMOGLOBIN 26.5 pg (27.0-33.0); MEAN CORPUSCULAR HGB CONC 30.8 g/dl (32.0-36.5); PLATELET COUNT, AUTOMATED 323 10^3/uL (150-450); RED BLOOD COUNT 3.78 10^6/uL (4.00-5.40); WHITE BLOOD COUNT 4.2 10^3/uL (4.0-10.0)
[2024-07-15 11:35] LABS: BLOOD UREA NITROGEN 22 MG/DL (9-23); CALCIUM LEVEL 9.4 MG/DL (8.3-10.6); CARBON DIOXIDE LEVEL 28 MMOL/L (20-31); CHLORIDE LEVEL 103 MMOL/L (98-107); CREATININE FOR GFR 0.44 MG/DL (0.55-1.30); GLOMERULAR FILTRATION RATE > 60.0 (>39); GLUCOSE, FASTING 85 MG/DL (74-106); POTASSIUM SERUM 4.2 MMOL/L (3.5-5.1); SODIUM LEVEL 138 MMOL/L (136-145)
== END ==
PROVIDERS: ATTEND Internal Medicine
DX: D64.9 Anemia, unspecified (principal)

== ENCOUNTER → 2024-08-14 | Outpatient (REF) | payer MEDICARE, MEDICAID ==
[2024-08-14 10:00] LABS: HEMATOCRIT 31.8 % (36.0-47.0); HEMOGLOBIN 9.8 g/dl (12.0-15.5); MEAN CORPUSCULAR HEMOGLOBIN 26.9 pg (27.0-33.0); MEAN CORPUSCULAR HGB CONC 30.8 g/dl (32.0-36.5); MEAN CORPUSCULAR VOLUME 87.4 fl (80.0-96.0); PLATELET COUNT, AUTOMATED 309 10^3/uL (150-450); RED BLOOD COUNT 3.64 10^6/uL (4.00-5.40); WHITE BLOOD COUNT 4.2 10^3/uL (4.0-10.0)
[2024-08-14 10:23] LABS: BLOOD UREA NITROGEN 34 MG/DL (9-23); CALCIUM LEVEL 9.3 MG/DL (8.3-10.6); CARBON DIOXIDE LEVEL 28 MMOL/L (20-31); CHLORIDE LEVEL 104 MMOL/L (98-107); CREATININE FOR GFR 0.46 MG/DL (0.55-1.30); GLOMERULAR FILTRATION RATE > 60.0 (>39); GLUCOSE, FASTING 98 MG/DL (74-106); POTASSIUM SERUM 4.3 MMOL/L (3.5-5.1); SODIUM LEVEL 139 MMOL/L (136-145)
== END ==
PROVIDERS: ATTEND Internal Medicine
DX: R62.7 Adult failure to thrive (principal)

== ENCOUNTER → 2024-09-16 | Outpatient (REF) | payer MEDICARE, MEDICAID ==
[2024-09-16 11:29] LABS: HEMATOCRIT 31.9 % (36.0-47.0); HEMOGLOBIN 10.2 g/dl (12.0-15.5); MEAN CORPUSCULAR VOLUME 87.6 fl (80.0-96.0); PLATELET COUNT, AUTOMATED 309 10^3/uL (150-450); RED BLOOD COUNT 3.64 10^6/uL (4.00-5.40); WHITE BLOOD COUNT 4.2 10^3/uL (4.0-10.0)
[2024-09-16 11:44] LABS: BLOOD UREA NITROGEN 29 MG/DL (9-23); CARBON DIOXIDE LEVEL 27 MMOL/L (20-31); CHLORIDE LEVEL 103 MMOL/L (98-107); CREATININE FOR GFR 0.48 MG/DL (0.55-1.30); GLOMERULAR FILTRATION RATE > 60.0 (>39); GLUCOSE, FASTING 133 MG/DL (74-106); POTASSIUM SERUM 4.2 MMOL/L (3.5-5.1); SODIUM LEVEL 139 MMOL/L (136-145)
== END ==
PROVIDERS: ATTEND Internal Medicine
DX: R62.7 Adult failure to thrive (principal)

== ENCOUNTER → 2024-10-16 | Outpatient (REF) | payer MEDICARE, MEDICAID ==
[2024-10-16 10:51] LABS: HEMOGLOBIN 9.9 g/dl (12.0-15.5); MEAN CORPUSCULAR HEMOGLOBIN 27.4 pg (27.0-33.0); MEAN CORPUSCULAR HGB CONC 30.9 g/dl (32.0-36.5); MEAN CORPUSCULAR VOLUME 88.6 fl (80.0-96.0); PLATELET COUNT, AUTOMATED 300 10^3/uL (150-450); RED BLOOD COUNT 3.61 10^6/uL (4.00-5.40); WHITE BLOOD COUNT 4.3 10^3/uL (4.0-10.0)
[2024-10-16 11:16] LABS: BLOOD UREA NITROGEN 25 MG/DL (9-23); CALCIUM LEVEL 8.7 MG/DL (8.3-10.6); CARBON DIOXIDE LEVEL 28 MMOL/L (20-31); CHLORIDE LEVEL 105 MMOL/L (98-107); CREATININE FOR GFR 0.47 MG/DL (0.55-1.30); GLOMERULAR FILTRATION RATE > 60.0 (>39); GLUCOSE, FASTING 90 MG/DL (74-106); POTASSIUM SERUM 4.5 MMOL/L (3.5-5.1); SODIUM LEVEL 141 MMOL/L (136-145)
== END ==
PROVIDERS: ATTEND Internal Medicine
DX: I48.91 Unspecified atrial fibrillation (principal)

== ENCOUNTER → 2024-11-11 | Outpatient (REF) | payer MEDICARE, MEDICAID ==
[2024-11-11 11:47] LABS: HEMATOCRIT 31.6 % (36.0-47.0); HEMOGLOBIN 9.8 g/dl (12.0-15.5); MEAN CORPUSCULAR HEMOGLOBIN 27.5 pg (27.0-33.0); MEAN CORPUSCULAR VOLUME 88.5 fl (80.0-96.0); PLATELET COUNT, AUTOMATED 294 10^3/uL (150-450); RED BLOOD COUNT 3.57 10^6/uL (4.00-5.40); WHITE BLOOD COUNT 4.5 10^3/uL (4.0-10.0)
[2024-11-11 12:20] LABS: FOLATE > 24.00 NG/ML (>5.4)
[2024-11-11 12:22] LABS: BLOOD UREA NITROGEN 23 MG/DL (9-23); CALCIUM LEVEL 8.6 MG/DL (8.3-10.6); CARBON DIOXIDE LEVEL 27 MMOL/L (20-31); CHLORIDE LEVEL 104 MMOL/L (98-107); CREATININE FOR GFR 0.47 MG/DL (0.55-1.30); GLOMERULAR FILTRATION RATE > 60.0 (>39); GLUCOSE, FASTING 126 MG/DL (74-106); MAGNESIUM LEVEL 1.7 MG/DL (1.8-2.4); POTASSIUM SERUM 4.2 MMOL/L (3.5-5.1); SODIUM LEVEL 139 MMOL/L (136-145)
[2024-11-11 12:23] LABS: VITAMIN B12 LEVEL 641 PG/ML (211-911)
== END ==
PROVIDERS: ATTEND Internal Medicine
DX: I48.91 Unspecified atrial fibrillation (principal)

== ENCOUNTER → 2024-12-16 | Outpatient (REF) | payer MEDICARE, MEDICAID ==
[2024-12-16 10:30] LABS: HEMATOCRIT 33.7 % (36.0-47.0); HEMOGLOBIN 10.5 g/dl (12.0-15.5); MEAN CORPUSCULAR HEMOGLOBIN 27.9 pg (27.0-33.0); MEAN CORPUSCULAR HGB CONC 31.2 g/dl (32.0-36.5); MEAN CORPUSCULAR VOLUME 89.6 fl (80.0-96.0); PLATELET COUNT, AUTOMATED 300 10^3/uL (150-450); RED BLOOD COUNT 3.76 10^6/uL (4.00-5.40); WHITE BLOOD COUNT 4.8 10^3/uL (4.0-10.0)
[2024-12-16 10:55] LABS: BLOOD UREA NITROGEN 25 MG/DL (9-23); CALCIUM LEVEL 8.7 MG/DL (8.3-10.6); CARBON DIOXIDE LEVEL 25 MMOL/L (20-31); CHLORIDE LEVEL 101 MMOL/L (98-107); CREATININE FOR GFR 0.51 MG/DL (0.55-1.30); GLOMERULAR FILTRATION RATE > 60.0 (>39); GLUCOSE, FASTING 174 MG/DL (74-106); POTASSIUM SERUM 4.3 MMOL/L (3.5-5.1); SODIUM LEVEL 136 MMOL/L (136-145)
== END ==
PROVIDERS: ATTEND Physician Assistant
DX: R62.7 Adult failure to thrive (principal)

== ENCOUNTER → 2025-01-13 | Outpatient (REF) | payer MEDICARE, MEDICAID ==
[2025-01-13 09:38] LABS: HEMATOCRIT 32.1 % (36.0-47.0); HEMOGLOBIN 9.8 g/dl (12.0-15.5); MEAN CORPUSCULAR HEMOGLOBIN 27.8 pg (27.0-33.0); MEAN CORPUSCULAR HGB CONC 30.5 g/dl (32.0-36.5); MEAN CORPUSCULAR VOLUME 91.2 fl (80.0-96.0); PLATELET COUNT, AUTOMATED 333 10^3/uL (150-450); RED BLOOD COUNT 3.52 10^6/uL (4.00-5.40); WHITE BLOOD COUNT 5.3 10^3/uL (4.0-10.0)
[2025-01-13 10:01] LABS: BLOOD UREA NITROGEN 27 MG/DL (9-23); CALCIUM LEVEL 8.6 MG/DL (8.3-10.6); CARBON DIOXIDE LEVEL 28 MMOL/L (20-31); CHLORIDE LEVEL 102 MMOL/L (98-107); CREATININE FOR GFR 0.49 MG/DL (0.55-1.30); GLOMERULAR FILTRATION RATE > 90.0 (>39); GLUCOSE, FASTING 96 MG/DL (74-106); POTASSIUM SERUM 4.3 MMOL/L (3.5-5.1); SODIUM LEVEL 139 MMOL/L (136-145)
== END ==
PROVIDERS: ATTEND Internal Medicine
DX: I48.91 Unspecified atrial fibrillation (principal)

== ENCOUNTER → 2025-03-19 | Outpatient (REF) | payer MEDICARE, MEDICAID ==
[~2025-03-19] MED LIST changes: +LIDO1ADH93 TD; -LIDO5DIS41 TD
== END ==
PROVIDERS: ATTEND Internal Medicine
DX: Z79.899 Other long term (current) drug therapy (principal); R62.7 Adult failure to thrive